=== PATIENT | male | born 1965 | race Caucasian/White ===

== ENCOUNTER 2016-04-09 11:37 | Emergency (ER) | payer OTHER ==
[2016-04-09] MEDS ORDERED: NS 1,000 ML IV ONE (12:20)
[2016-04-09 12:46] LABS: COLOR PALE YELLOW; LEUKOCYTE ESTERASE,URINE NEGATIVE (NEGATIVE); NITRITE,URINE NEGATIVE (NEGATIVE)
--- NOTE | 2016-04-09 12:46 | EDPHY ---
H & P Time Seen by Provider: 04/09/16 11:57 HPI/ROS: HPI Back pain. 50-year-old male by private vehicle with his . This patient reports that last night he developed sudden-onset right flank pain with radiation to the right lower groin. He reports that persisted overnight. He reports that he then developed pain in the right mid buttock. Reports that this radiated into his lower buttock area and worsened this morning. He reports he had difficulty ambulating because of this. He reports that the flank pain completely resolved overnight. But he still has persisting pain in the right buttock. He reports now that he has come to the emergency department this is better as well. States that he has a sensation of numbness in the anterior aspect of the right farfan. No history of trauma. He has had no bowel or bladder incontinence. No fever. No gross hematuria. No history of malignancy. No loss of sensation or weakness in his lower extremities. No other complaints. ROS: Constitutional: No fever, no chills. No weakness. Gastrointestinal: No abdominal pain, no vomiting, no diarrhea. Genitourinary: No hematuria. No dysuria or increased frequency with urination. Musculoskeletal: As above. No neck pain. No myalgias or arthralgias. Skin: No rashes. Neurological: No headache. As above. No focal weakness. Past medical history: No significant past medical history. Social history: Nonsmoker. Here with his . No significant past medical history. Physical Exam: General Appearance: Alert, no distress. This patient is responding to questions appropriately and in full sentences. This patient appears well- hydrated and well-nourished. Eyes: Pupils equal and round no pallor or injection. No lid edema, erythema or injection. Back exam: No midline thoracic, lumbar, sacral tenderness on palpation. No CVA tenderness on palpation bilaterally. Negative same side and cross side straight leg raise test. He has some tenderness on palpation which is mild and vague over the lower right side SI joint upper gluteus justin musculature. No soft tissue changes. No ecchymosis, no swelling, no edema, no warmth or erythema. His motor function is intact in all myotomes of the bilateral lower extremities. He does have some mild paresthesia which is asymmetric on light touch to the L5 distribution anterior right leg. Respiratory: There are no retractions, lungs are clear to auscultation with good air movement bilaterally. Cardiovascular: Regular rate and rhythm. No murmur. Gastrointestinal: Abdomen is soft and nontender, no masses, bowel sounds normal. No focal tenderness at McBurney's point. No Pearl sign. Neurological: Motor sensory function is grossly intact. Cranial nerves are normal. Gait is normal. Skin: Warm and dry, no rashes. Musculoskeletal: Neck is supple and nontender. Extremities are symmetrical. All joints range without pain or impingement. Psychiatric: No agitation. No depression. Database: EKG: Imaging: Procedures: Emergency department course: Urinalysis shows blood but is otherwise negative. Differential diagnosis on this patient includes ureterolithiasis on the right side that is recently passed , spasming of the gluteus justin with an L5 nerve impingement at L5 paresthesia. Acute lumbar spinal radiculopathy possible but not as likely. This was discussed with the patient. His neurologic condition in the emergency department is reassuring on exam. He was given 30 mg of IV Toradol and 10 mg of oral Flexeril. He does not have any history of renal dysfunction or contraindications to NSAIDs. Plan will be to have him follow up with his primary care physician for re-evaluation on Monday. He has been given strict instructions to return to the emergency department for continued altered sensation in his left anterior leg greater than 8 hours, loss of sensation, weakness in the lower extremity, slap foot, return of pain, fever or other serious concerns. He feels comfortable with this plan. All of his questions were answered. He was discharged in good condition. Urinalysis obtained. Differential Diagnosis: The differential diagnosis on this patient includes but is not limited to sciatica, ureterolithiasis, as above. This represents a partial list of diagnoses considered. These considerations are based on history, physical exam , past history, reassessment and diagnostic testing. Smoking Status: Never smoked Constitutional: Initial Vital Signs Heart Rate 71 04/09/16 11:47 Respiratory Rate 18 04/09/16 11:47 Blood Pressure 179/104 H 04/09/16 11:47 O2 Sat (%) 94 04/09/16 11:47 O2 Delivery Mode Room Air Allergies/Adverse Reactions: No Known Allergies Allergy (Verified 03/14/15 10:20) Home Medications: Medication Instructions Recorded Simvastatin [Zocor] 40 mg PO HS 03/14/15 Cyclobenzaprine [Flexeril 10 MG 10 mg PO TID #9 tab 04/09/16 (*)] Medical Decision Making - Data Points Medications Given: Discontinued Medications Cyclobenzaprine HCl (Flexeril) 10 mg PO EDNOW ONE Stop: 04/09/16 13:34 Last Admin: 04/09/16 13:43 Dose: 10 mg Sodium Chloride (Ns) 1,000 mls @ 0 mls/hr IV ONCE ONE PRN Reason: Wide Open Stop: 04/09/16 12:21 Last Admin: 04/09/16 12:33 Dose: 1,000 mls Ketorolac Tromethamine (Toradol) 30 mg IVP EDNOW ONE Stop: 04/09/16 13:34 Last Admin: 04/09/16 13:43 Dose: 30 mg Departure - Departure Disposition: Home, Routine, Self-Care Clinical Impression: Sciatica, Probable kidney stone Condition: Good Instructions: Kidney Stones (ED), Sciatica (ED) Additional Instructions: Read and follow provided instructions. Follow-up with your primary care physician on Monday for re-evaluation. Ibuprofen dosin mg every 6 hours with meals for the next 3 days only. Do not take ibuprofen until tonight after a p.m.. Take medication as prescribed and only as needed for muscle spasming. Return to the emergency department for worsening pain, loss of sensation or weakness in your leg, bowel or bladder incontinence, fever or other serious concerns. Referrals: Raul Sommer MD [Primary Care Provider] - As per Instructions Laurie Barnes MD [Medical Doctor] - As per Instructions Prescriptions: Cyclobenzaprine [Flexeril 10 MG (*)] 10 mg PO TID #9 tab
[2016-04-09 12:48] LABS: MUCUS TRACE /lpf (NONE-1+)
[2016-04-09] MEDS ORDERED: CYCLOBENZAPRINE 10 MG TAB PO ONE (13:33)
[2016-04-09] MEDS ORDERED: KETOROLAC 30 MG/1 ML SDV IVP ONE (13:33)
[2016-04-09 13:50] VITALS: BP 141/91; PULSE 77; RESP 16; TEMP 98.1; O2SAT 97
== END 2016-04-09 13:55 | disposition home or self-care (01) ==
DX: M54.30 Sciatica, unspecified side (principal)
CPT/HCPCS: 96374; J1885

== ENCOUNTER → 2016-04-12 | Outpatient (CLI) | payer OTHER | LOC: FIMAGING 09:21 | PROVIDERS: ATTEND Family Medicine | DX: Q76.49 Other congenital malformations of spine, not associated with scoliosis (principal); M51.86 Other intervertebral disc disorders, lumbar region; M48.06 Spinal stenosis, lumbar region; R31.9 Hematuria, unspecified ==

== ENCOUNTER → 2016-06-02 | Outpatient (CLI) | payer OTHER | LOC: FIMAGING 13:35 | PROVIDERS: ATTEND Physical Medicine & Rehabilitation Neuromuscular Medicine | DX: M54.9 Dorsalgia, unspecified (principal); M51.36 Other intervertebral disc degeneration, lumbar region ==